=== PATIENT | female | born 1995 | race Asian ===

== ENCOUNTER 2020-05-11 10:38 | Emergency (ER) | payer MEDICAID ==
[2020-05-11 11:06] VITALS: BP 128/85
[2020-05-11 11:41] LABS: MUDS CUTOFF CONCENTRATIONS CUTOFF CONC BELOW:
[2020-05-11 11:44] LABS: BILIRUBIN,URINE NEGATIVE (NEGATIVE); GLUCOSE, URINE (UA) NEGATIVE (NEGATIVE); KETONES,URINE (UA) NEGATIVE (NEGATIVE); LEUKOCYTE ESTERASE, URINE NEGATIVE (NEGATIVE); NITRITE,URINE NEGATIVE (NEGATIVE); OCCULT BLOOD,URINE NEGATIVE (NEGATIVE); PROTEIN,URINE NEGATIVE (NEGATIVE); UROBILINOGEN,URINE 0.2 (NORMAL) E.U./dL (NORMAL)
[2020-05-11 11:46] LABS: CLARITY,URINE CLEAR (CLEAR)
[2020-05-11 11:47] LABS: HCG UR QUAL NEGATIVE
[2020-05-11 12:01] LABS: BASOPHILS # (AUTO) 0.1 10^3/uL (0.0-0.1); BASOPHILS % (AUTO) 0.8 %; EOSINOPHILS # (AUTO) 0.1 10^3/uL (0.0-0.7); EOSINOPHILS % (AUTO) 2.3 %; HGB - HEMOGLOBIN 15.2 g/dL (12.0-16.0); LYMPHOCYTES # (AUTO) 1.8 10^3/uL (1.5-3.5); LYMPHOCYTES % (AUTO) 29.7 %; MEAN CORPUSCULAR HEMOGLOBIN 29.3 pg (27.0-31.0); MEAN CORPUSCULAR VOLUME 88.6 fL (81.0-99.0); MEAN PLATELET VOLUME 8.5 fL (7.9-10.8); MONOCYTES # (AUTO) 0.2 10^3/uL (0.0-1.0); MONOCYTES % (AUTO) 3.9 %; NEUTROPHILS # (AUTO) 3.8 10^3/uL (1.5-6.6); NEUTROPHILS % (AUTO) 62.8 %; PLT - PLATELET COUNT 247 10^3/uL (130-450); RED BLOOD COUNT 5.19 10^6/uL (4.20-5.40); RED CELL DISTRIBUTION WIDTH 11.8 % (12.0-15.0); WHITE BLOOD COUNT 6.1 x10^3/uL (4.8-10.8)
[2020-05-11 12:13] LABS: AMPHETAMINE SCREEN,URINE NEGATIVE (NEGATIVE); BENZODIAZEPINES SCREEN, URINE NEGATIVE (NEGATIVE); COCAINE SCREEN URINE NEGATIVE (NEGATIVE); METHADONE SCREEN, URINE NEGATIVE (NEGATIVE); METHAMPHETAMINES SCREEN, URINE NEGATIVE (NEGATIVE); OPIATE SCREEN, URINE NEGATIVE (NEGATIVE); OXYCODONE SCREEN, URINE NEGATIVE (NEGATIVE); PROPOXYPHENE SCREEN, URINE NEGATIVE (NEGATIVE); TRICYCLIC ANTIDEPRESSANT,URINE NEGATIVE (NEGATIVE)
--- NOTE | 2020-05-11 12:14 | ED Physician Documentation ---
History of Present Illness - Stated complaint Stated Complaint: MHE - Chief complaint Chief Complaint: MHE - History obtained from History obtained from: Patient - Additonal information Additional information: 24-year-old female presents to the emergency department requesting help to access psychiatric and mental health resources. She reports to me that her boyfriend was concerned she may be bipolar. He wanted her to see a doctor to get a diagnosis. She called a primary care clinic this morning to set up an appointment with the doctor but the nurse on the phone was concerned because the patient had described her self is sometimes hopeless. Therefore she advised her to come to the emergency department to get medically cleared before being seen by primary care provider. This patient reports to me that in the past she has drank excessively but has not drank for at least 6 months. There are times that she is leahy and depressed. She was diagnosed with depression in her teen years but has never taken medications. She denies thoughts of self-harm. She has no previous history of suicidal attempt. She denies any homicidal thoughts. She denies access to guns. She feels safe in her current relationship and at home. She is simply interested in resources for talk therapy and perhaps starting medication for a long history of depression. Review of Systems Constitutional: reports: Reviewed and negative Ears: reports: Reviewed and negative Nose: reports: Reviewed and negative Throat: reports: Reviewed and negative Cardiac: reports: Reviewed and negative Respiratory: reports: Reviewed and negative GI: reports: Reviewed and negative : reports: Reviewed and negative Skin: reports: Reviewed and negative Musculoskeletal: reports: Reviewed and negative Neurologic: reports: Reviewed and negative Psychiatric: reports: Depressed, Insomnia. denies: Suicidal, Homicidal, Hallucinations, Delusions, Anxiety Endocrine: reports: Reviewed and negative PD PAST MEDICAL HISTORY - Past Medical History Past Medical History: Yes Psych: Depression, Bipolar disorder - Past Surgical History Past Surgical History: No - Allergies Allergies/Adverse Reactions: Allergies Allergy/AdvReac Type Severity Reaction Status Date / Time No Known Drug Allergies Allergy Verified 05/11/20 11:03 - Social History Does the pt smoke?: Yes Smoking Status: Current some day smoker Does the pt drink ETOH?: Yes ETOH Use: Liquor Does the pt have substance abuse?: No PD ED PE NORMAL - General General: Alert and oriented X 3, No acute distress, Well developed/nourished - Neck Neck: Supple, no meningeal sign - Cardiac Cardiac: RRR, No murmur - Abdomen Abdomen: Normal bowel sounds - Neuro Neuro: Alert and oriented X 3, outreach coordinator 2-12 intact, No motor deficit, No sensory deficit Eye Opening: Spontaneous Motor: Obeys Commands Verbal: Oriented GCS Score: 15 - Psych Psych: Normal mood, Normal affect, Other (Denies thoughts of self-harm or harm to others. She makes good eye contact. She speaks positively about the future. She is interested in obtaining a psychiatric diagnosis and perhaps starting talk therapy) Results - Vitals Vitals: Vital Signs - 24 hr 05/11/20 10:52 Temperature 37.7 C H Heart Rate 67 Respiratory 18 Rate Blood Pressure 128/85 H O2 Saturation 99 Oxygen O2 Source Room air - Labs Labs: Laboratory Tests 05/11/20 05/11/20 05/11/20 11:04 11:33 11:56 WBC 6.1 RBC 5.19 Hgb 15.2 Hct 46.0 MCV 88.6 MCH 29.3 MCHC 33.0 RDW 11.8 L Plt Count 247 MPV 8.5 Neut # (Auto) 3.8 Lymph # (Auto) 1.8 [place] # (Auto) 0.2 Eos # (Auto) 0.1 Baso # (Auto) 0.1 Absolute Nucleated RBC 0.00 Nucleated RBC % 0.0 Sodium Potassium Chloride Carbon Dioxide Anion Gap BUN Creatinine Estimated GFR (MDRD) Glucose Calcium Total Bilirubin AST ALT Alkaline Phosphatase Total Protein Albumin Globulin Albumin/Globulin Ratio Lipase TSH Urine Color STRAW Urine Clarity CLEAR Urine pH 7.0 Ur Specific [place] 1.010 Urine Protein NEGATIVE Urine Glucose (UA) NEGATIVE Urine Ketones NEGATIVE Urine Occult Blood NEGATIVE Urine Nitrite NEGATIVE Urine Bilirubin NEGATIVE Urine Urobilinogen 0.2 (NORMAL) Ur Leukocyte Esterase NEGATIVE Ur Microscopic Review NOT INDICATED Urine Culture Comments NOT INDICATED Urine HCG, Qual NEGATIVE Salicylates Urine Opiates Screen NEGATIVE Ur Oxycodone Screen NEGATIVE Urine Methadone Screen NEGATIVE Ur Propoxyphene Screen NEGATIVE Acetaminophen Ur Barbiturates Screen NEGATIVE Ur Tricyclics Screen NEGATIVE Ur Phencyclidine Scrn NEGATIVE Ur Amphetamine Screen NEGATIVE U Methamphetamines Scrn NEGATIVE U Benzodiazepines Scrn NEGATIVE Urine Cocaine Screen NEGATIVE U Cannabinoids Screen NEGATIVE Ethyl Alcohol SARS-CoV-2 (PCR) NOT DETECTED 05/11/20 05/11/20 11:56 11:56 WBC RBC Hgb Hct MCV MCH MCHC RDW Plt Count MPV Neut # (Auto) Lymph # (Auto) [place] # (Auto) Eos # (Auto) Baso # (Auto) Absolute Nucleated RBC Nucleated RBC % Sodium 138 Potassium 3.8 Chloride 100 L Carbon Dioxide 28 Anion Gap 10.0 BUN 10 Creatinine 0.6 Estimated GFR (MDRD) 121 Glucose 96 Calcium 9.5 Total Bilirubin 1.4 H AST 18 ALT 15 Alkaline Phosphatase 56 Total Protein 7.9 Albumin 4.8 Globulin 3.1 Albumin/Globulin Ratio 1.5 Lipase 23 TSH 1.12 Urine Color Urine Clarity Urine pH Ur Specific [place] Urine Protein Urine Glucose (UA) Urine Ketones Urine Occult Blood Urine Nitrite Urine Bilirubin Urine Urobilinogen Ur Leukocyte Esterase Ur Microscopic Review Urine Culture Comments Urine HCG, Qual Salicylates < 6.0 Urine Opiates Screen Ur Oxycodone Screen Urine Methadone Screen Ur Propoxyphene Screen Acetaminophen < 10 L Ur Barbiturates Screen Ur Tricyclics Screen Ur Phencyclidine Scrn Ur Amphetamine Screen U Methamphetamines Scrn U Benzodiazepines Scrn Urine Cocaine Screen U Cannabinoids Screen Ethyl Alcohol < 5.0 SARS-CoV-2 (PCR) PD MEDICAL DECISION MAKING - ED course Complexity details: reviewed results, re-evaluated patient, considered differential, d/w patient ED course: 24-year-old female with a longstanding history of untreated depression presents to the emergency in order to obtain medical clearance for her to be seen by primary care provider. Her boyfriend is concerned that she may be bipolar. However patient denies any thoughts of self-harm. She denies any recent drug or alcohol use. She easily contracts for safety. There is no obvious reason at this time to involuntarily commit to the patient. She is not interested in psychiatric hospitalization at this point. Her labs and drug screen are benign. I have asked social work to see her. They will attempt to give her information to contact [facility] for a next day appointment. I have encouraged patient to schedule an appointment with primary for follow-up and I will also give her emergent return precautions for any thoughts of self harm Departure - Departure Disposition: Home, Self Care Clinical Impression: Depression Qualifiers: Depression Type: other depression Qualified Code(s): F32.89 - Other specified depressive episodes Condition: Stable Record reviewed to determine appropriate education?: Yes Instructions: ED Depression Comments: October I want to wish you luck on your journey to better mental health. Please continue to schedule the appointment with your primary care doctor for follow- up. Please use the resources our social media assistant gave you including trying to obtain a same-day or next available appointment with a psychiatric provider. If at any point you have thoughts of self-harm, feel helpless or feel that you are not safe please call 911, return to the emergency department or call the National suicide crisis hotline
[2020-05-11 12:17] LABS: ACETAMINOPHEN < 10 ug/mL (10-30); ALBUMIN 4.8 g/dL (3.2-5.5); ALBUMIN/GLOBULIN RATIO 1.5 (1.0-2.2); ALKALINE PHOSPHATASE 56 IU/L (42-121); ALT ALANINE AMINOTRANSFERASE 15 IU/L (10-60); AST ASPARTATE AMINOTRANSFERASE 18 IU/L (10-42); BILIRUBIN,TOTAL 1.4 mg/dL (0.2-1.0); BUN - BLOOD UREA NITROGEN 10 mg/dL (6-20); CALCIUM 9.5 mg/dL (8.5-10.3); CARBON DIOXIDE - CO2 28 mmol/L (21-32); CHLORIDE 100 mmol/L (101-111); CREATININE 0.6 mg/dL (0.4-1.0); GLUCOSE 96 mg/dL (70-100); LIPASE 23 U/L (22-51); SALICYLATE < 6.0 mg/dL; SODIUM 138 mmol/L (135-145); TOTAL PROTEIN 7.9 g/dL (6.7-8.2)
== END 2020-05-11 13:27 | disposition home or self-care (01) ==
LOC: ED 10:38
DX: F32.89 Other specified depressive episodes (principal); Z20.828 Contact with and (suspected) exposure to other viral communicable diseases; F17.200 Nicotine dependence, unspecified, uncomplicated
CPT/HCPCS: 36415; 80053; 80306; 80307; 80320; 80329; 81001; 81003; 81025; 83690; 84443; 85025; 87086; 99283

== ENCOUNTER 2020-11-01 09:16 | Emergency (ER) | payer MEDICAID ==
[2020-11-01] MEDS ORDERED: IBUPROFEN 600 MG TABLET PO STA (09:33)
--- NOTE | 2020-11-01 09:36 | ED Physician Documentation ---
PD HPI LOWER EXT INJURY - Stated complaint Stated Complaint: RT TOE PX - Chief complaint Chief Complaint: Trauma Ext - History obtained from History obtained from: Patient - History of Present Illness PD HPI LOW EXT INJURY LOCATION: Right (Slipped on wet bathroom for about 3 days ago and hyperextended toes on the right foot with persistent pain of the fourth right toe.) Review of Systems Constitutional: reports: Reviewed and negative Eyes: reports: Reviewed and negative Ears: reports: Reviewed and negative Nose: reports: Reviewed and negative Throat: reports: Reviewed and negative Cardiac: reports: Reviewed and negative PD PAST MEDICAL HISTORY - Past Medical History Past Medical History: Yes Cardiovascular: None Respiratory: Asthma Neuro: None Endocrine/Autoimmune: None GI: None REGIONAL SALES REPRESENTATIVE: None : None HEENT: None Psych: Depression, Bipolar disorder Musculoskeletal: None Derm: None - Past Surgical History Past Surgical History: No /REGIONAL SALES REPRESENTATIVE: Breast implants - Present Medications Home Medications: Ambulatory Orders Medication Instructions Recorded Confirmed No Known Home Medications 11/01/20 11/01/20 - Allergies Allergies/Adverse Reactions: Allergies Allergy/AdvReac Type Severity Reaction Status Date / Time No Known Drug Allergies Allergy Verified 11/01/20 09:20 - Social History Does the pt smoke?: Yes Smoking Status: Former smoker Does the pt drink ETOH?: Yes Does the pt have substance abuse?: No - Immunizations Immunizations are current?: Yes PD ED PE NORMAL - Vitals Vital signs reviewed: Yes - General General: Alert and oriented X 3, No acute distress - Extremities Extremities: Other (Ecchymotic proximal right fourth toe with significant pain with range of motion as well as distal metatarsal pain of that digit. No other foot tenderness.) - Neuro Neuro: Alert and oriented X 3, Normal speech Results - Vitals Vitals: Vital Signs - 24 hr 11/01/20 11/01/20 09:20 10:40 Temperature 36.7 C 36.6 C Heart Rate 76 71 Respiratory 16 16 Rate Blood Pressure 120/73 121/60 O2 Saturation 99 98 Oxygen O2 Source Room air - Rads (name of study) R 4th toe Radiology: EMP read contemporaneously (NAD) PD MEDICAL DECISION MAKING - ED course ED course: Toe zac taped and fracture shoe Departure - Departure Disposition: 01 Home, Self Care Clinical Impression: Sprain, IP, toe, fourth, right Qualifiers: Encounter type: initial encounter Qualified Code(s): S93.514A - Sprain of interphalangeal joint of right lesser toe(s), initial encounter Condition: Good Record reviewed to determine appropriate education?: Yes Instructions: ED Sprain Toe Comments: Recheck with your doctor in a week or 2 if not improving, return for new or worsening symptoms. Tylenol or ibuprofen as needed for pain. Discharge Date/Time: 11/01/20 10:42
--- NOTE | 2020-11-01 10:19 | XRAY Report ---
PROCEDURE: Toe(s) RT INDICATIONS: toe inj TECHNIQUE: 3 views of the right 4th toe(s) acquired. COMPARISON: None FINDINGS: Bones: No fractures or dislocations. 4th DIP fused. No suspicious bony lesions. Soft tissues: No suspicious soft tissue densities. IMPRESSION: No fracture. No acute osseous lesion. If there persistent symptoms or continued clinical concern for pathology, then repeat plain film radiographs (7-10 days) or advanced imaging (CT, MR, bone scan) augustine uld be considered for further evaluation. Reviewed by: Christal Yao MD, PhD on 11/01/2020 10:18 AM PDT Approved by: Christal Yao MD, PhD on 11/01/2020 10:18 AM PDT Station ID: [id number]
[2020-11-01 11:54] VITALS: BP 121/60
== END 2020-11-01 10:42 | disposition home or self-care (01) ==
LOC: ED 09:16
DX: S93.514A Sprain of interphalangeal joint of right lesser toe(s), initial encounter (principal); X50.1XXA Overexertion from prolonged static or awkward postures, initial encounter; Y93.E1 Activity, personal bathing and showering; Y92.002 Bathroom of unspecified non-institutional (private) residence as the place of occurrence of the external cause; Z87.891 Personal history of nicotine dependence
CPT/HCPCS: 73660; 99282; 99283; A9270